=== PATIENT | female | born 1940 | race African-American/Black ===

== ENCOUNTER 2018-01-02 12:55 | Outpatient (RCR) | payer OTHER, MEDICAID | END 2018-01-12 | disposition home or self-care (01) | LOC: WCC 12:55 | DX: L89.154 Pressure ulcer of sacral region, stage 4 (principal); L89.894 Pressure ulcer of other site, stage 4; L89.514 Pressure ulcer of right ankle, stage 4; L89.524 Pressure ulcer of left ankle, stage 4; G30.9 Alzheimer's disease, unspecified; F02.80 Dementia in other diseases classified elsewhere, unspecified severity, without behavioral disturbance, psychotic disturbance, mood disturbance, and anxiety | CPT/HCPCS: 11042; 11043; 11046 ==

== ENCOUNTER 2018-03-27 12:09 | Outpatient (RCR) | payer MEDICARE, MEDICAID | END 2018-04-14 | disposition home or self-care (01) | LOC: WCC 12:09 | DX: L89.514 Pressure ulcer of right ankle, stage 4 (principal); L89.894 Pressure ulcer of other site, stage 4; L89.893 Pressure ulcer of other site, stage 3; L89.524 Pressure ulcer of left ankle, stage 4; G30.9 Alzheimer's disease, unspecified; F02.80 Dementia in other diseases classified elsewhere, unspecified severity, without behavioral disturbance, psychotic disturbance, mood disturbance, and anxiety; S91.002D Unspecified open wound, left ankle, subsequent encounter; S91.001D Unspecified open wound, right ankle, subsequent encounter | CPT/HCPCS: 97605 ==

== ENCOUNTER 2018-05-20 14:31 | Outpatient (RCR) | payer MEDICARE, MEDICAID ==
[~2018-05-20] VITALS: Ht 69 cm; Wt 72.6 kg
== END 2018-06-12 | disposition home or self-care (01) ==
LOC: WCC 14:31
DX: L89.513 Pressure ulcer of right ankle, stage 3 (principal); L89.890 Pressure ulcer of other site, unstageable; L89.522 Pressure ulcer of left ankle, stage 2; M24.561 Contracture, right knee; M24.562 Contracture, left knee; R26.89 Other abnormalities of gait and mobility; G30.9 Alzheimer's disease, unspecified; F02.80 Dementia in other diseases classified elsewhere, unspecified severity, without behavioral disturbance, psychotic disturbance, mood disturbance, and anxiety
CPT/HCPCS: 11043; G0463

== ENCOUNTER 2018-06-24 13:44 | Outpatient (RCR) | payer MEDICARE, MEDICAID | END 2018-07-13 | disposition home or self-care (01) | LOC: WCC 13:44 | DX: L89.890 Pressure ulcer of other site, unstageable (principal); L89.522 Pressure ulcer of left ankle, stage 2; M24.561 Contracture, right knee; M24.562 Contracture, left knee; R26.89 Other abnormalities of gait and mobility | CPT/HCPCS: 11043 ==

== ENCOUNTER 2018-07-15 13:10 | Outpatient (RCR) | payer MEDICARE, MEDICAID ==
[~2018-07-15] VITALS: Ht 175.3 cm; Wt 72.6 kg
== END 2018-08-12 | disposition home or self-care (01) ==
LOC: WCC 13:10
DX: L89.890 Pressure ulcer of other site, unstageable (principal); L89.522 Pressure ulcer of left ankle, stage 2; M24.561 Contracture, right knee; M24.562 Contracture, left knee; R26.89 Other abnormalities of gait and mobility; G30.9 Alzheimer's disease, unspecified; F02.80 Dementia in other diseases classified elsewhere, unspecified severity, without behavioral disturbance, psychotic disturbance, mood disturbance, and anxiety
CPT/HCPCS: 11043

== ENCOUNTER 2019-06-22 09:23 | Outpatient (RCR) | payer MEDICARE, MEDICAID | END 2019-07-14 | disposition home or self-care (01) | LOC: WCC 09:23 | DX: L89.314 Pressure ulcer of right buttock, stage 4 (principal); L89.629 Pressure ulcer of left heel, unspecified stage; G30.9 Alzheimer's disease, unspecified; F02.80 Dementia in other diseases classified elsewhere, unspecified severity, without behavioral disturbance, psychotic disturbance, mood disturbance, and anxiety; Z86.73 Personal history of transient ischemic attack (TIA), and cerebral infarction without residual deficits | CPT/HCPCS: 11044; 87070; 87181; 87205 ==

== ENCOUNTER 2020-01-04 12:04 | Outpatient (RCR) | payer MEDICARE, MEDICAID | END 2020-01-13 | disposition home or self-care (01) | LOC: WCC 12:04 | DX: L89.314 Pressure ulcer of right buttock, stage 4 (principal); G82.22 Paraplegia, incomplete; L97.322 Non-pressure chronic ulcer of left ankle with fat layer exposed; G30.9 Alzheimer's disease, unspecified; F02.80 Dementia in other diseases classified elsewhere, unspecified severity, without behavioral disturbance, psychotic disturbance, mood disturbance, and anxiety; Z86.73 Personal history of transient ischemic attack (TIA), and cerebral infarction without residual deficits; Z74.01 Bed confinement status | CPT/HCPCS: 11042; 11043; 11044; 87070; 87205; 97605 ==

== ENCOUNTER 2020-02-01 11:33 | Outpatient (RCR) | payer MEDICARE, MEDICAID | END 2020-02-13 | disposition home or self-care (01) | LOC: WCC 11:33 | DX: L89.314 Pressure ulcer of right buttock, stage 4 (principal); L97.322 Non-pressure chronic ulcer of left ankle with fat layer exposed; G82.22 Paraplegia, incomplete; G30.9 Alzheimer's disease, unspecified; F02.80 Dementia in other diseases classified elsewhere, unspecified severity, without behavioral disturbance, psychotic disturbance, mood disturbance, and anxiety | CPT/HCPCS: 11042; 11043 ==

== ENCOUNTER 2020-02-15 08:55 | Outpatient (RCR) | payer MEDICARE, MEDICAID | END 2020-03-14 | disposition home or self-care (01) | LOC: WCC 08:55 | DX: L89.314 Pressure ulcer of right buttock, stage 4 (principal); L97.322 Non-pressure chronic ulcer of left ankle with fat layer exposed; G82.22 Paraplegia, incomplete; G30.9 Alzheimer's disease, unspecified; F02.80 Dementia in other diseases classified elsewhere, unspecified severity, without behavioral disturbance, psychotic disturbance, mood disturbance, and anxiety; L89.510 Pressure ulcer of right ankle, unstageable | CPT/HCPCS: 11042; 11043 ==